=== PATIENT | male | born 1960 | race Caucasian/White ===

== ENCOUNTER 2018-04-01 08:55 | Inpatient (IN) | payer OTHER ==
[2018-03-29 12:11] VITALS: BMI 29.5
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
[2018-04-16] MEDS ORDERED: LIDOCAINE HCL/PF 2% SDV 5ML VIAL ONE ×2 (07:26→08:39)
[2018-04-16] MEDS ORDERED: ROCURONIUM BROMIDE 50 MG/5 ML VIAL ONE ×3 (07:27→08:55)
[2018-04-16] MEDS ORDERED: SUCCINYLCHOLINE CHLORIDE 200 MG/10 ML VIAL ONE (07:27)
[2018-04-16] MEDS ORDERED: PROPOFOL 20 ML ONE ×2 (07:27→08:29)
[2018-04-16] MEDS ORDERED: MIDAZOLAM HCL 2 MG/2 ML SINGLE DOSE VIAL ONE (07:30)
[2018-04-16] MEDS ORDERED: DEXAMETHASONE SOD PHOSPHATE 4 MG/1 ML VIAL ONE ×2 (07:32→08:56)
[2018-04-16] MEDS ORDERED: ONDANSETRON 4 MG/2 ML VIAL ONE ×2 (07:32→08:56)
[2018-04-16] MEDS ORDERED: GENTAMICIN SO4 80 MG/2 ML VIAL ONE (07:33)
[2018-04-16] MEDS ORDERED: VANCOMYCIN 1,000 MG VIAL (RESTRICTED TO ID ONLY) ONE ×2 (07:33→08:37)
[2018-04-16] MEDS ORDERED: LIDOCAINE 1%/EPI 1:100000 (20 ML MULTI DOSE VIAL) ONE (07:33)
[2018-04-16] MEDS ORDERED: THROMBIN (BOVINE) 20,000 UNIT VIAL TP ONE (07:33)
[2018-04-16] MEDS ORDERED: BUPIVACAINE HCL/PF 0.5% (5MG/ML) 10 ML VIAL ONE (07:34)
[2018-04-16] MEDS ORDERED: THROMBIN (BOVINE) 5,000 UNIT VIAL TP ONE (07:34)
[2018-04-16] MEDS ORDERED: SEVOFLURANE 250 ML BTL ONE (07:36)
[2018-04-16] MEDS ORDERED: DESFLURANE GAS 240 ML BOTTLE IH ONE (07:36)
[2018-04-16] MEDS ORDERED: ONDANSETRON 4 MG/2 ML VIAL IVPUSH PRN ×3 (07:49→11:25)
[2018-04-16] MEDS ORDERED: LACTATED RINGERS SOLUTION 1,000 ML IV SCH ×2 (08:00→11:30)
[2018-04-16] MEDS ORDERED: ceFAZolin SODIUM 1 GM VIAL ONE ×3 (08:13→23:23)
--- NOTE | 2018-04-16 08:18 | HP ---
History & Physical Update - History History: No Change - Physical Physical: No Change - Assessment Assessment: No Change - Plan Plan: No Change
[2018-04-16] MEDS ORDERED: ceFAZolin SODIUM 1 GM VIAL IVPB ONE (08:35)
[2018-04-16] MEDS ORDERED: LIDOCAINE 1%/EPI 1:100000 (50 ML MULTI DOSE VIAL) INF ONE (08:39)
[2018-04-16] MEDS ORDERED: VANCOMYCIN 1,000 MG VIAL (RESTRICTED TO ID ONLY) IVPB ONE (08:40)
[2018-04-16] MEDS ORDERED: GLYCOPYRROLATE 0.2 MG/1 ML VIAL ONE (09:59)
[2018-04-16] MEDS ORDERED: NEOSTIGMINE METHYLSULFATE 0.5 MG/ML - 10 ML MDV ONE (09:59)
[2018-04-16] MEDS: HYDROmorphone *PCA* 10MG/50ML DISP.SYRIN PCA SCH (10:15)
[2018-04-16] MEDS ORDERED: HYDROmorphone *PCA* 10MG/50ML DISP.SYRIN PCA ONE ×2 (11:23→11:45)
[2018-04-16] MEDS ORDERED: ACETAMINOPHEN 1000 MG/100 ML VIAL (NON FORMULARY) IVPB PRN (11:25)
[2018-04-16] MEDS ORDERED: diphenhydrAMINE HCL 25 MG CAPSULE (FP) PO PRN (11:40)
[2018-04-16] MEDS ORDERED: ACETAMINOPHEN INJECTION 100 ML IVPB ONE ×2 (11:43→12:20)
--- NOTE | 2018-04-16 11:47 | OP ---
Operative Note - Note: Operative Date: 04/16/18 Pre-Operative Diagnosis: Facet arthropathy with segmental instability Operation: L4-L5 discectomy with fusion with interbody cage arthrodesis and pedicle screw fixation Post-Operative Diagnosis: Same as Pre-op Surgeon: Hernan Cleary Sql Developer: Lorna Farrell Anesthesiologist/PAINT SPRAYING MACHINE OPERATOR HELPER: Jose Vazquez Anesthesia: General Estimated Blood Loss (mls): 200 Drains & Tubes with Location: j/p right lumbar paravetebral Drains, Volume Out (mls): 250 (sun) Fluid Volume Replaced (mls): 1,300 Operative Report Dictated: Yes
--- NOTE | 2018-04-16 11:59 | SURG ---
Surgery Procedures Analyst Note Procedures Analyst: Lorna Farrell PA-C Date of Service: 04/16/18 Diagnosis: facet arthropathy with segmental instabilituy Procedure: L4-L5 discectomy with fusion with interbody cage arthrodesis and pedicle screw fixation I was present for the entirety of the operative procedure. For further detail, please refer to operative report. Visit type - Case Type Case Type: Scheduled - Emergency Emergency Visit: No - New patient This patient is new to me today: Yes Date on this admission: 04/16/18
[2018-04-16] MEDS ORDERED: ACETAMINOPHEN 1000 MG/100 ML VIAL (NON FORMULARY) IVPB ONE (12:24)
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
--- NOTE | 2018-04-16 14:30 | PN ---
Teaching Attending Note Name of Resident: Stacey Newton ATTENDING PHYSICIAN STATEMENT I saw and evaluated the patient. I reviewed the resident's note and discussed the case with the resident. I agree with the resident's findings and plan as documented. SUBJECTIVE: OBJECTIVE: Vital Signs Period Temp Pulse Resp BP Sys/[place] Pulse Ox Last 24 Hr 97.4 F-97.9 F 61-82 16-20 121-131/65-75 98-100 Laboratory Tests 04/16/18 06:10 Blood Type O POSITIVE Antibody Screen Negative Home Medications Medication Instructions Recorded Ibuprofen [Motrin -] 400 mg PO QID PRN 03/29/18 Current Medications Generic Name Dose Route Start Last Admin Trade Name Freq PRN Reason Stop Dose Admin Acetaminophen 650 mg 04/16/18 11:30 Tylenol - PO Q6H DUSTIN Acetaminophen 1,000 mg 04/16/18 11:25 Ofirmev Injection - IVPB 04/17/18 11:24 PRN PRN If narcotics are ineffective Diphenhydramine HCl 12.5 mg 04/16/18 10:09 Benadryl Injection - IVPUSH ONCE PRN FOR ITCHING Diphenhydramine HCl 25 mg 04/16/18 11:40 Benadryl - PO Q6H PRN FOR ITCHING Fentanyl 50 mcg 04/16/18 07:49 Sublimaze Injection - IVPUSH [id number] PRN PAIN-PACU ORDER X 4 DOSES ONLY Heparin Sodium (Porcine) 5,000 unit 04/17/18 08:00 Heparin - SQ Q8H-IV DUSTIN Hydromorphone HCl 0 mg 04/16/18 10:15 04/16/18 10:15 Dilaudid Associate Professor Of Media Arts - WELLNESS MANAGER 04/23/18 10:10 10 mg WELLNESS MANAGER DUSTIN Administration Protocol Lactated Ringer's 1,000 mls @ 125 mls/hr 04/16/18 11:30 Lactated Ringers Solution IV ASDIR DUSTIN Cefazolin Sodium 1 gm/ 100 mls @ 200 mls/hr 04/16/18 17:00 Dextrose IVPB Q8H-IV DUSTIN Ondansetron HCl 4 mg 04/16/18 10:09 Zofran Injection IVPUSH Q4H PRN NAUSEA AND/OR VOMITING Ondansetron HCl 4 mg 04/16/18 11:25 Zofran Injection IVPUSH Q6H PRN NAUSEA AND/OR VOMITING ASSESSMENT AND PLAN:
[2018-04-16] MEDS ORDERED: DEXTROSE 5%-WATER 100 ML IVPB ONE ×2 (17:35→23:23)
[2018-04-16] MEDS: ACETAMINOPHEN 325 MG TABLET (FP) PO SCH ×2 (17:49→23:24)
[2018-04-16] MEDS: CEFAZOLIN 1 GM in DEXTROSE 5%-WATER 100 ML IVPB SCH ×2 (17:50→17:53)
[2018-04-17] MEDS: ACETAMINOPHEN 325 MG TABLET (FP) PO SCH ×5 (00:01→23:12)
[2018-04-17] MEDS: CEFAZOLIN 1 GM in DEXTROSE 5%-WATER 100 ML IVPB SCH ×3 (01:35→18:10)
[2018-04-17 07:18] LABS: HEMATOCRIT 34.4 % (35.4-49); HEMOGLOBIN 11.8 GM/dL (11.7-16.9); MCH 29.4 pg (25.7-33.7); MCHC 34.3 g/dl (32.0-35.9); MEAN CELL VOLUME 85.6 fl (80-96); PLATELET COUNT 164 K/MM3 (134-434); RBC 4.02 M/mm3 (4.00-5.60); RDW 12.3 % (11.9-15.9); WHITE BLOOD COUNT 14.2 K/mm3 (4.0-10.0)
[2018-04-17 07:59] LABS: CHLORIDE 107 mmol/L (98-107); POTASSIUM 3.8 mmol/L (3.5-5.1); SODIUM 141 mmol/L (136-145)
[2018-04-17 08:14] LABS: ANION GAP 9 (8-16); BLOOD UREA NITROGEN 10 mg/dL (7-18); CALCIUM 8.3 mg/dL (8.5-10.1); CO2 25 mmol/L (21-32); CREATININE 0.8 mg/dL (0.7-1.3); GLUCOSE,RANDOM 115 mg/dL (74-106)
--- NOTE | 2018-04-17 08:39 | PN ---
Progress Note (short form) - Note Progress Note: 58M s/p L4/5 fusion POD#1, pt seen laying comfortably in bed. Pt complains of mild headache since coming out of OR denies worsening with position. States that tylenol improve the pain, but comes back once meds wear off. Pt denies n/v , fevers, chills. Pt states back pain is controlled with OUTREACH ASSISTANT. Pt has not ambulated yet, and has sun in place. Pt tolerating PO. Last Vital Signs Temp Pulse Resp BP Pulse Ox 98.1 F 66 20 115/58 98 04/17/18 06:00 04/17/18 06:00 04/17/18 06:00 04/17/18 06:00 04/16/18 21:00 CBC, BMP 04/17/18 06:00 04/17/18 06:00 PE: General: awake, alert, and oriented Resp: breathing comfortably Abd: soft, nontender Back: Lumbar dressing in place, clean no erythema or discharge. Drain in place with serosanguinous drainage. Lumbar drain Output: 235ml Lower Ext: No weakness, numbness Problem List - Problems (1) S/P laminectomy Assessment/Plan: Plan -DC sun -OOB as tolerated with TSLO brace -DVT ppx -Regular diet -cont OUTREACH ASSISTANT Code(s): Z98.890 - OTHER SPECIFIED POSTPROCEDURAL STATES
[2018-04-17] MEDS: HEPARIN NA (PORCINE) 5,000 UNITS/ML 1ML VIAL SQ SCH ×3 (08:55→18:09)
[2018-04-17] MEDS: FERROUS SO4 325 MG TABLET (FP) PO SCH (08:55)
[2018-04-17] MEDS ORDERED: LACTATED RINGERS SOLUTION 1,000 ML IV SCH (09:00)
[2018-04-17] MEDS ORDERED: ceFAZolin SODIUM 1 GM VIAL ONE ×3 (09:32→21:06)
[2018-04-17] MEDS ORDERED: DEXTROSE 5%-WATER 100 ML IVPB ONE ×3 (09:33→21:06)
[2018-04-17] MEDS: FOLIC ACID 1 MG TABLET (FP) PO SCH (09:41)
[2018-04-17] MEDS: HYDROmorphone *PCA* 10MG/50ML DISP.SYRIN PCA SCH (11:07)
[2018-04-17] MEDS: SENNOSIDES 8.6MG TABLET (FP) PO SCH ×2 (13:52→23:12)
[2018-04-17] MEDS: DOCUSATE SODIUM 100 MG CAPSULE (FP) PO SCH (13:53)
[2018-04-17] MEDS ORDERED: oxyCODONE HCL 5 MG TABLET PO PRN (14:54)
[2018-04-17] MEDS ORDERED: diazePAM 5 MG TABLET PO PRN (14:56)
--- NOTE | 2018-04-17 17:22 | PN ---
Teaching Attending Note Name of Resident: Gabriela Farias ATTENDING PHYSICIAN STATEMENT I saw and evaluated the patient. I reviewed the resident's note and discussed the case with the resident. I agree with the resident's findings and plan as documented. SUBJECTIVE: back pain is tolerable. , used PILOT PLANT OPERATOR HELPER x 3 only since sx. no numbness , tingling or weakness in LE OBJECTIVE: NAD CV; RRR Lungs: CTAB Ext: no edema Neuro or LE : strength 4/4 in hip flexsion ( limited due to pain ) , 5/5 in knee flexion and extension , ankle dorsiflexion and plantar flexion . rflexes 1 + knee jerk b/l . Nl sensation to light touch ASSESSMENT AND PLAN: 58 y/o man with h/o back pain, facet arthropathy who presented for back procedure and had L4-L5 discectomy with fusion with interbody cage arthrodesis and pedicle screw fixation 1- S/P L4-L5 discectomy with fusion with interbody cage arthrodesis and pedicle screw fixation: - doing well and ambulating with walker - pain control . off PILOT PLANT OPERATOR HELPER - bowel regimen: add senna - DVT px - ambulation - leukocytosis is likely reactive - monitor Hb - off IVF. - dc dino HLOC. cont PT to determine dispo
[2018-04-17] MEDS ORDERED: PT OWN MED DRAWER 7, Y5N ONE (18:07)
[2018-04-17] MEDS: oxyCODONE HCL 5 MG TABLET PO PRN (18:10)
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
--- NOTE | 2018-04-17 18:31 | PN ---
Progress Note (short form) - Note Progress Note: S: Pt. sitting in a chair without complaints O: VAS 5/10 A/P: POD #1 s/p l4-5 discectomy and fusion 1. VAULT SERVICE MECHANIC d/c'd 2. po pain meds as ordered 3. no apparent anesthetic complications
[2018-04-18] MEDS: CEFAZOLIN 1 GM in DEXTROSE 5%-WATER 100 ML IVPB SCH ×2 (02:43→10:29)
[2018-04-18] MEDS: HEPARIN NA (PORCINE) 5,000 UNITS/ML 1ML VIAL SQ SCH ×2 (02:44→10:29)
[2018-04-18] MEDS: ACETAMINOPHEN 325 MG TABLET (FP) PO SCH ×3 (06:00→17:11)
[2018-04-18 07:07] LABS: HEMATOCRIT 33.5 % (35.4-49); HEMOGLOBIN 11.6 GM/dL (11.7-16.9); MCH 29.6 pg (25.7-33.7); MCHC 34.6 g/dl (32.0-35.9); MEAN CELL VOLUME 85.5 fl (80-96); PLATELET COUNT 147 K/MM3 (134-434); RBC 3.92 M/mm3 (4.00-5.60); RDW 12.6 % (11.9-15.9); WHITE BLOOD COUNT 11.4 K/mm3 (4.0-10.0)
[2018-04-18 07:08] LABS: CHLORIDE 106 mmol/L (98-107); POTASSIUM 3.8 mmol/L (3.5-5.1); SODIUM 141 mmol/L (136-145)
[2018-04-18 07:15] LABS: ANION GAP 6 (8-16); CALCIUM 8.2 mg/dL (8.5-10.1); CO2 29 mmol/L (21-32); CREATININE 0.9 mg/dL (0.7-1.3); GLUCOSE,RANDOM 95 mg/dL (74-106)
[2018-04-18 07:29] LABS: BLOOD UREA NITROGEN 12 mg/dL (7-18)
--- NOTE | 2018-04-18 08:05 | PN ---
Progress Note (short form) - Note Progress Note: surgery POD # 2 L4-L5 laminectomy and fusion. Patient seen and examined at bedside with no complaints. Patient states he has some discomfort over incision and lower back when he moves by denies any radicular pain into LE, fever, chills, N/V SOB or CP. He is tolerating a diet and ambulation without assistance and voiding. Vital Signs Temp 99 F 04/18/18 06:47 Pulse 77 04/18/18 06:47 Resp 20 04/18/18 06:47 BP 114/56 04/18/18 06:47 Pulse Ox 98 04/17/18 21:00 Intake & Output 04/17/18 04/17/18 04/18/18 11:59 23:59 11:59 Intake Total 200 Output Total 3000 610 550 Balance -3000 -410 -550 Intake: IVPB 200 Output: Drainage 100 110 Right Lower 100 110 Urine 2900 500 550 [place] 2900 Void 500 550 Other: Voiding Method Urinal Urinal Bowel Movement Yes # Bowel Movements 30 CBC, BMP 04/18/18 06:20 04/18/18 06:20 PE: A&Ox3, NAD Unlabored resp on RA Lumbar dressing aquacell c/d/i with no evidence of d/c, surrounding tissue with no erythema, edema or collection. J/P drain at right lumbar paravertebral area removed with tip fully intact. 25cc bloody d/c in bulb. Pressure dressing applied over site. b/l LE compartments soft, supple and non-tender to palpation. 5/5 dorsi/plantar flexion with +2 pedal pulses and sensation to light touch intact throughout. Problem List - Problems (1) S/P laminectomy Assessment/Plan: POD #2 L4-L5 lamiectomy with fusion doing well. Plan: 1) OOB with TLSO brace 2) Continue DVT prophylaxis 3) pain control 4) d/c planing for home today after PT evaluation completed. Evaluation and plan discussed with Dr Cleary. Code(s): Z98.890 - OTHER SPECIFIED POSTPROCEDURAL STATES (2) Status post laminectomy with spinal fusion Code(s): Z98.1 - ARTHRODESIS STATUS
[2018-04-18] MEDS ORDERED: PT OWN MED DRAWER 7, Y5N ONE (10:25)
[2018-04-18] MEDS ORDERED: DEXTROSE 5%-WATER 100 ML IVPB ONE (10:26)
[2018-04-18] MEDS ORDERED: ceFAZolin SODIUM 1 GM VIAL ONE (10:26)
[2018-04-18] MEDS: SENNOSIDES 8.6MG TABLET (FP) PO SCH (10:28)
[2018-04-18] MEDS: FERROUS SO4 325 MG TABLET (FP) PO SCH (10:28)
[2018-04-18] MEDS: oxyCODONE HCL 5 MG TABLET PO PRN (10:29)
[2018-04-18] MEDS: FOLIC ACID 1 MG TABLET (FP) PO SCH (10:29)
[2018-04-18] MEDS: DOCUSATE SODIUM 100 MG CAPSULE (FP) PO SCH (10:29)
--- NOTE | 2018-04-18 13:02 | PN ---
Teaching Attending Note Name of Resident: Gabriela Farias ATTENDING PHYSICIAN STATEMENT I saw and evaluated the patient. I reviewed the resident's note and discussed the case with the resident. I agree with the resident's findings and plan as documented. SUBJECTIVE: back pain with movement OBJECTIVE: NAD CV; RRR Lungs: CTAB Ext: no edema Neuro or LE : strength 5/5 in hip flexsion , 5/5 in knee flexion and extension , ankle dorsiflexion and plantar flexion . reflexes 1+ knee jerk b/l . Nl sensation to light touch ASSESSMENT AND PLAN: 58 y/o man with h/o back pain, facet arthropathy who presented for back procedure and had L4-L5 discectomy with fusion with interbody cage arthrodesis and pedicle screw fixation 1- S/P L4-L5 discectomy with fusion with interbody cage arthrodesis and pedicle screw fixation: - cont to do well - pain control with oxycodone - bowel regimen - DVT px - ambulation - leukocytosis is likely reactive. improved - stable Hb - cefazoline while drain in HLOC. cont PT.
[2018-04-18 16:33] VITALS: BP 110/91; PULSE 101; TEMP 99.1
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
== END 2018-04-18 17:47 | disposition home or self-care (01) | DRG 304 ==
LOC: JSAMEDAYSX 04-16 05:06 → J8W 04-16 15:08
PROVIDERS: ADMIT Internal Medicine; ATTEND Internal Medicine
PROC: 0SG0071 Fusion of Lumbar Vertebral Joint with Autologous Tissue Substitute, Posterior Approach, Posterior Column, Open Approach (ICD-10-PCS; 2018-04-16)
PROC: 0JX70ZB Transfer Back Subcutaneous Tissue and Fascia with Skin and Subcutaneous Tissue, Open Approach (ICD-10-PCS; 2018-04-16)
PROC: 0QB00ZZ Excision of Lumbar Vertebra, Open Approach (ICD-10-PCS; principal; 2018-04-16 08:00)
DX: M47.896 Other spondylosis, lumbar region (principal); M12.88 Other specific arthropathies, not elsewhere classified, other specified site; S32.008A Other fracture of unspecified lumbar vertebra, initial encounter for closed fracture; X58.XXXA Exposure to other specified factors, initial encounter; Y93.9 Activity, unspecified; Y92.89 Other specified places as the place of occurrence of the external cause; Y99.9 Unspecified external cause status; N17.9 Acute kidney failure, unspecified; D72.829 Elevated white blood cell count, unspecified; R79.89 Other specified abnormal findings of blood chemistry
CPT/HCPCS: 36415; 72131-TC; 76000-TC-FY; 80048; 85027; 86850; 86900; 86901; 94010; 94760; 97116-GP; 97161-GP; J0131; J1644